=== PATIENT | male | born 1995 | race Caucasian/White ===

== ENCOUNTER 2016-08-10 15:34 | Emergency (ER) | payer BC ==
[2016-08-10] MEDS ORDERED: MAALOX/LIDO/HYOSC GI COCKTAIL 55 ML BOTTLE PO ONE (18:07)
--- NOTE | 2016-08-10 18:07 | EDPHY ---
H & P Stated Complaint: Intermittent midsternal/esophageal pain since last pm;denies drug use Time Seen by Provider: 08/10/16 18:03 HPI/ROS: CHIEF COMPLAINT: Esophageal discomfort HISTORY OF PRESENT ILLNESS: Patient is a 21-year-old man who comes to the emergency department complaining of a burning and pressure sensation in his esophagus. He states that it is worse with eating. He denies chest pain or shortness of breath. It is now resolved because he is not even several hours while waiting in the emergency department waiting room. He does not have any history of medical conditions or surgeries. he did try taking some ibuprofen this morning that seemed to make it worse. REVIEW OF SYSTEMS: Constitutional: denies: chills, fever, recent illness, recent injury EENTM: denies: blurred vision, double vision, nose congestion Respiratory: denies: cough, shortness of breath Cardiac: See HPI denies: irregular heart rate, lightheadedness, palpitations Gastrointestinal/Abdominal: See HPI, denies: abdominal pain, diarrhea, nausea, vomiting, blood streaked stools Genitourinary: denies: dysuria, frequency, hematuria, pain Musculoskeletal: denies: joint pain, muscle pain Skin: denies: lesions, rash, jaundice, bruising Neurological: denies: headache, numbness, paresthesia, tingling, dizziness, weakness Hematologic/Lymphatic: denies: blood clots, easy bleeding, easy bruising Immunologic/allergic: denies: HIV/AIDS, transplant EXAM: GENERAL: Well-appearing, well-nourished and in no acute distress. HEAD: Atraumatic, normocephalic. EYES: Pupils equal round and reactive to light, extraocular movements intact, sclera anicteric, conjunctiva are normal. ENT: TMs normal, nares patent, oropharynx clear without exudates. Moist mucous membranes. NECK: Normal range of motion, supple without lymphadenopathy or JVD. LUNGS: Breath sounds clear to auscultation bilaterally and equal. No wheezes rales or rhonchi. HEART: Regular rate and rhythm without murmurs, rubs or gallops. ABDOMEN: Soft, nontender, normoactive bowel sounds. No guarding, no rebound. No masses appreciated. BACK: No CVA tenderness, no spinal tenderness, step-offs or deformities EXTREMITIES: Normal range of motion, no pitting or edema. No clubbing or cyanosis. NEUROLOGICAL: Cranial nerves II through XII grossly intact. Normal speech, normal gait. 5/5 strength, normal movement in all extremities, normal sensation PSYCH: Normal mood, normal affect. SKIN: Warm, dry, normal turgor, no visible rashes or lesions. Source: Patient Exam Limitations: No limitations - Personal History Current Tetanus Diphtheria and Acellular Pertussis (TDAP): Yes - Medical/Surgical History Hx Asthma: No Hx Chronic Respiratory Disease: No Hx Diabetes: No Hx Cardiac Disease: No Hx Renal Disease: No Hx Cirrhosis: No Hx Alcoholism: No Other PMH: daily weed smoker - Family History Significant Family History: No pertinent family hx - Social History Smoking Status: Current every day smoker Alcohol Use: Sober Drug Use: None Constitutional: Initial Vital Signs Temperature (C) 36.8 C 08/10/16 15:45 Heart Rate 66 08/10/16 15:45 Respiratory Rate 16 08/10/16 15:45 Blood Pressure 132/65 H 08/10/16 15:45 O2 Sat (%) 96 08/10/16 15:45 O2 Delivery Mode Room Air Allergies/Adverse Reactions: No Known Allergies Allergy (Unverified 08/10/16 15:47) Home Medications: Medication Instructions Recorded Pantoprazole Sodium [Protonix] 40 mg PO DAILY #30 tab 08/10/16 Medical Decision Making - Diagnostics EKG Interpretation: An EKG obtained and was read and documented in trace view. Please see trace view for full reading and report. Sinus rhythm, no acute ischemic changes ED Course/Re-evaluation: The patient's symptoms are consistent with esophagitis. This is what he was suspecting. I will obtain an EKG just in case and will start him on an an antacid. The patient had some symptom relief with GI cocktail. His EKG is reassuring. I will refer him to his primary care physician for further workup and testing. He declines any further testing here in the emergency department. Differential Diagnosis: Partial list of the Differential diagnosis considered include but were not limited to; peptic ulcer disease, esophagitis, acute coronary disease and although unlikely based on the history and physical exam, I also considered arrhythmia, pericarditis, perforation, abscess. I discussed these differential diagnoses and the plan with the patient as well as the usual and expected course. The patient understands that the diagnosis is provisional and that in medicine we are not always correct and that further workup is often warranted. Usual and customary warnings were given. All of the patient's questions were answered. The patient was instructed to return to the emergency department should the symptoms at all worsen or return, otherwise to followup with the physician as we discussed. - Data Points Medications Given: Discontinued Medications Miscellaneous Medication (Gi Cocktail) 55 ml PO EDNOW ONE Stop: 08/10/16 18:08 Last Admin: 08/10/16 18:26 Dose: 55 ml Departure - Departure Disposition: Home, Routine, Self-Care Clinical Impression: GERD (gastroesophageal reflux disease) Qualifiers: Esophagitis presence: esophagitis presence not specified Qualified Code(s): K21.9 - Gastro-esophageal reflux disease without esophagitis Condition: Fair Instructions: Gastroesophageal Reflux Disease (ED) Referrals: NONE *PRIMARY CARE P,. [Primary Care Provider] - As per Instructions Angelina Vogel MD [Medical Doctor] - As per Instructions Prescriptions: Pantoprazole Sodium [Protonix] 40 mg PO DAILY #30 tab
--- NOTE | 2016-08-10 18:11 | CPEKG ---
Heart Rate: 70 RR Interval: 857 P-R Interval: 144 QRSD Interval: 90 QT Interval: 400 QTC Interval: 432 P Laurel: 8 QRS Laurel: 39 T Wave Laurel: 13 EKG Severity - NORMAL ECG - EKG Impression: SINUS RHYTHM Electronically Signed By: Rodríguez Shaw 12-Aug-2016 09:28:41
[2016-08-10 18:40] VITALS: BP 129/81; PULSE 83; RESP 14; TEMP 98.8; O2SAT 96
== END 2016-08-10 18:39 | disposition home or self-care (01) ==
DX: K21.9 Gastro-esophageal reflux disease without esophagitis (principal); F17.200 Nicotine dependence, unspecified, uncomplicated